=== PATIENT | female | born 1985 | race Caucasian/White ===

== ENCOUNTER 2020-02-16 15:03 | Outpatient (CLI) | payer OTHER, SELFPAY ==
--- NOTE | 2020-02-16 15:32 | ECG_ITS ---
Measurements Intervals [place] Rate: 75 P: 60 IA: 137 QRS: 51 QRSD: 85 T: 43 QT: 382 QTc: 427 Interpretive Statements SINUS RHYTHM INCOMPLETE RIGHT BUNDLE BRANCH BLOCK BASELINE WANDER- I, II, III, AVR, AVL BORDERLINE ECG Electronically Signed On 02-16-2020 18:19:39 CDT by Gonzalez Mora D.O.
== END 2020-02-16 15:04 | disposition home or self-care (01) ==
PROVIDERS: PCP Nurse Practitioner Family
DX: F90.0 Attention-deficit hyperactivity disorder, predominantly inattentive type (principal)
CPT/HCPCS: 93005

== ENCOUNTER 2021-01-25 08:49 | Outpatient (CLI) | payer OTHER, SELFPAY ==
--- NOTE | 2021-02-15 15:20 | WPDHOMESLEEP ---
Sleep Study - Home Unattended Date of Study: 01/25/21 Ordering Provider: Nadege Mack NP Interpreting Provider: Jo Mendez MD Home Sleep Study Type: Apnea Link Air Height: 1.7 m Weight: 73.936 kg Body Mass Index: 25.5 Neck Circumference (inches): 14.5 [place]: 8 Reason for Sleep Study Frequent loud snoring, excessive daytime sleepiness Sleep History Maegan Díaz is a 35 year old female who never feels rested, no matter how much sleep she gets. She frequently snores, occasionally loud enough that others complain. She cannot get out of the bed to start her day before noon. She uses Adderall for ADHD, and this helps mildly. She is a night owl, She does not have heartburn symptoms at night, does not have belching or coughing. She frequently falls asleep in the day, rarely involuntarily, never while driving. She rarely has loss of muscle tone with strong emotion. She frequently has daytime difficulties due to excessive sleepiness. She does not feel paralyzed on waking or falling asleep. She rarely has vivid dreamlike scenes on waking or falling asleep. She rarely has nightmares, rarely has raving thoughts. SHe rarely remembers her dreams. She frequently feels sad or depressed. She occasionally has anxiety. She rarely notices parts of her body jerking. She does not kick at night, does not have achy or crawly feelings in her legs, does not have leg pain at night, morning jaw pain, grinding teeth, stiff muscles in the morning, or pain at night. She has fatigue and concentration difficulties. Normal bedtime is 2:00 a.m., falling asleep quickly, waking multiple times at night due to Type I diabetes, and these awakenings last between 30 seconds to 1.5 minutes. These start soon after falling asleep, in the middle of the night and in the 1st pressman on web press hours. She checks her son's Dexcom which is a new activity. She previously had to heck a fingerstick glucose. She wakes at noon. On the weekends, she goes to bed at 3:00 am, wakes at 1 pm. She is always sleepy, frequently has memory and concentration difficulties and problems with daytime functioning due to excessive sleepiness. She had COVID in late November. She has gained 25 lb in the last year. [facility] Past Medical History Medical History Attention deficit disorder Depression with anxiety Dyslipidemia Essential (primary) hypertension History of COVID-19 11/2020 Vitamin D deficiency Family History Family History Father Family history of gastrointestinal disorder Other Asthma Hypertension Social History Social History Smoking status: Current every day smoker Alcohol intake: never Medications Home Medications Medication Instructions Recorded Confirmed Type desoximetasone 0.25 % topical cream g TOPICAL 08/08/19 10/25/20 History norgestimate 0.25 mg-ethinyl 1 tablet PO DAILY tablet 08/08/19 01/26/21 History estradiol 35 mcg tablet hydroxyzine HCl 25 mg tablet 25 mg PO TID PRN #30 tablet 09/15/19 01/26/21 Rx cholecalciferol (vitamin D3) 1,250 1,250 mcg PO WEEKLY #14 cap 11/19/20 01/26/21 Rx mcg (50,000 unit) capsule amlodipine 5 mg tablet 5 mg PO DAILY #90 tablet 01/26/21 01/26/21 Rx dextroamphetamine-amphetamine 5 mg 5 mg PO DAILY 01/26/21 01/26/21 History tablet dextroamphetamine-amphetamine ER 15 mg PO QAM 01/26/21 01/26/21 History 15 mg 24hr capsule,extend release fluoxetine 20 mg capsule 20 mg PO DAILY cap 01/26/21 01/26/21 History Sleep Procedure This test was performed using 4 channel monitoring including respiratory effort channel, snoring channel, heart rate channel, and oxygen saturation channel. This study was scored using CMS guidelines. Sleep Architecture Not applicable for home sleep test. Respiratory Analysis Recording time is 8 hours 22 minutes. Evaluation time is 8 ho
[2021-02-15 15:39] VITALS: BMI 25.5
== END 2021-01-26 11:10 | disposition home or self-care (01) ==
LOC: ANHCSM 08:53
PROVIDERS: PCP Nurse Practitioner Family; Visit Provider Nurse Practitioner Family
DX: G47.33 Obstructive sleep apnea (adult) (pediatric) (principal); G47.10 Hypersomnia, unspecified
CPT/HCPCS: 95806

== ENCOUNTER 2021-03-28 10:02 | Emergency (ER) | payer OTHER, SELFPAY ==
--- NOTE | 2021-03-28 10:07 | ED.SKABFB ---
HPI - Skin/Abscess/Foreign Bdy General Stated complaint: rash Time Seen by Provider: 03/28/21 10:07 Source: patient and RN notes reviewed History of Present Illness HPI narrative: Patient is a 36-year-old female who presents the urgent care with complaints of a flare in her eczema. Patient states that she has had for approximately six and half years and tends to manage it well with her steroid cream. Patient states she is out of her mupirocin ointment and would also like a refill. States that steroids in the past have helped. Reports of the flare for approximately 1 week. No other acute complaints. No acute distress noted. Patient aware of the plan of care. Some parts of this dictation were generated by voice recognition software and may contain typographical and/or grammatical inaccuracies. Related Data Home Medications Medication Instructions Recorded Confirmed desoximetasone 0.25 % topical cream 0.25 g TOPICAL DAILY 08/08/19 03/28/21 norgestimate 0.25 mg-ethinyl 1 tablet PO DAILY tablet 08/08/19 03/28/21 estradiol 35 mcg tablet dextroamphetamine-amphetamine 5 mg 5 mg PO DAILY 01/26/21 03/28/21 tablet dextroamphetamine-amphetamine ER 15 mg PO QAM 01/26/21 03/28/21 15 mg 24hr capsule,extend release fluoxetine 20 mg capsule 20 mg PO DAILY cap 01/26/21 03/28/21 Allergies Allergy/AdvReac Type Severity Reaction Status Date / Time azathioprine Allergy Unknown Nausea Verified 03/28/21 10:16 Review of Systems Review of Systems: CONSTITUTIONAL: Denies fever, chills, or sweats. EYES: Denies visual changes, redness, or discharge. ENT: Denies rhinorrhea, congestion, sore throat, or otalgia. CARDIOVASCULAR: Denies chest pain, palpitations, or edema. RESPIRATORY: Denies cough or dyspnea. GASTROINTESTINAL: Denies abdominal pain, nausea, vomiting, or diarrhea. GENITOURINARY: Denies dysuria or hematuria. SKIN: Reports of flare of eczema on bilateral hands and forearms MUSCULOSKELETAL: Denies back pain, joint pain, or myalgia. NEUROLOGIC: Denies headache, numbness, or weakness. All other systems reviewed are negative, except as documented in HPI. [facility] Past Medical History Medical History Attention deficit disorder Depression with anxiety Dyslipidemia Essential (primary) hypertension History of COVID-19 11/2020 Vitamin D deficiency Family History Family History Father Family history of gastrointestinal disorder Other Asthma Hypertension Social History Social History Smoking status: Current every day smoker Alcohol intake: never Comments At the time of my signature, I reviewed and agree with the nursing past medical, surgical, social, and family history. There is no relevant family history pertinent to the patient complaint. Exam Narrative: GENERAL: This is a well-nourished, well-developed patient, in no apparent distress. HEAD: normocephalic, atraumatic. EYES: PERRL. Sclera clear/white. Vision is grossly intact. EARS: External ears normal NOSE: External nose normal with no obvious nasal discharge, nares without redness, no rhinorrhea. THROAT: Mucous membranes moist NECK: Neck supple CARDIOVASCULAR: Regular rate and rhythm without murmurs, gallops, or rubs. RESPIRATORY: Clear to auscultation. Breath sounds equal bilaterally. No wheezes, rales, or rhonchi. SKIN: Severe dyshidrotic eczema noted to bilateral palms with blistering and severe cracking of the skin. Scattered papular dermatitis to bilateral forearms NEURO: awake, alert, and oriented to person, place and time. There were no obvious focal neurologic abnormalities. EXTREMITIES: No clubbing, cyanosis, or edema. Course Vital Signs Vital signs: Vital Signs Temperature 98.2 F 03/28/21 10:09 Pulse Rate 104 H 03/28/21 10:09 Respiratory Rate 18 03/28/21 10:09 Blood P
[2021-03-28 10:09] VITALS: BP 129/87; PULSE 104; RESP 18; TEMP 36.8; O2SAT 99
[2021-03-28] MEDS: predniSONE 20 MG TABLET 60 MG PO (10:27)
== END 2021-03-28 10:41 | disposition home or self-care (01) ==
PROVIDERS: Emergency Provider Nurse Practitioner Family; PCP Nurse Practitioner Family
DX: L30.1 Dyshidrosis [pompholyx] (principal); E78.5 Hyperlipidemia, unspecified; I10 Essential (primary) hypertension; Z86.16 Personal history of COVID-19; F41.8 Other specified anxiety disorders; F98.8 Other specified behavioral and emotional disorders with onset usually occurring in childhood and adolescence
CPT/HCPCS: 99213; G0463; J7512

== ENCOUNTER 2023-10-18 15:17 | Emergency (ER) | payer OTHER, SELFPAY ==
--- NOTE | ~2023-10-18 | CT_ITS ---
EXAMINATION: CT facial bones wo con DATE: 10/18/2023 16:02 INDICATION: Nose swelling. Face injury. TECHNIQUE: Computed tomography (CT) of the facial bones and maxillofacial region was performed withou t intravenous contrast. Automated exposure control and iterative reconstruction technique were employ ed. The dose-length product was 316.37 mGy-cm. COMPARISON: None. FINDINGS: There is mucosal thickening in the paranasal sinuses, worst in left maxillary sinus. The ma stoid air cells are normal. There is cerumen in left external auditory canal. The orbits are normal. There is nose soft tissue swelling. There is no fracture. There is anterior deviation of anterior lisa al septum and rightward deviation of posterior nasal septum. IMPRESSION: 1. No fracture. Reviewed, dictated and finalized at location E. IMPRESSION: 1. No fracture.
[2023-10-18 15:22] VITALS: BP 127/79; PULSE 98; RESP 18; TEMP 36.6; O2SAT 98
--- NOTE | 2023-10-18 15:30 | ED.FALL ---
HPI - Fall General Chief Complaint: Fall Stated Complaint: fall, facial injury Time Seen by Provider: 10/18/23 15:30 Focused HPI: This is a 38-year-old female who presents to the ED today for chief complaint of facial injury. She reports that she was intoxicated last night and fell around 3:00 a.m.. Reports that she fell down to the ground and hit her face and has nasal swelling. Today she just wants to get this checked out. Reports pain in this area but no other sites of pain or injury. Denies any LOC. Denies numbness, weakness, neck pain. GENERAL: Well-appearing, well-nourished, and in no acute distress. HEAD: Normocephalic, atraumatic. ENT: Moderate nasal swelling and mild ecchymosis. No septal hematoma. CHEST: Clear to auscultation. No respiratory distress. HEART: Regular rate and rhythm. NEURO: Alert and oriented x3. Patient screened in triage and initial orders placed. Additional care and disposition to be based upon diagnostic testing and treatment. Related Data Home Medications Medication Instructions Recorded Confirmed desoximetasone 0.25 % topical cream 0.25 g topical DAILY 08/08/19 09/03/23 dextroamphetamine-amphetamine 5 mg 5 mg PO DAILY 01/26/21 09/03/23 tablet (Adderall) dextroamphetamine-amphetamine ER 15 mg PO QAM 01/26/21 09/03/23 15 mg 24hr capsule,extend release (Adderall XR) lamotrigine 100 mg tablet 100 mg PO DAILY 12/16/21 09/03/23 (Lamictal) fluoxetine 40 mg capsule 40 mg PO DAILY 11/29/22 09/03/23 ruxolitinib 1.5 % topical cream applic topical BID 11/29/22 09/03/23 (Opzelura) Allergies Allergy/AdvReac Type Severity Reaction Status Date / Time azathioprine Allergy Unknown Nausea Verified 10/18/23 15:17 Review of Systems Review of Systems: All systems as dictated in [facility] Past Medical History Medical History Attention deficit disorder Depression with anxiety Dyslipidemia Eczema Encounter for surveillance of other contraceptives Essential (primary) hypertension History of COVID-19 11/2020 Vitamin D deficiency Surgical History Surgical History H/O gynecological procedure Nexplanon insertion 06/04/23 Family History Family History Father Family history of gastrointestinal disorder Mother Hypertension Other Asthma Social History Social History Smoking packs per day: 0.5 Smoking cigarettes per day: 10.0 Smoking status: Current every day smoker Tobacco type: cigarettes Alcohol intake: current Drinks per week: 8 Substance use: never Substance use type: does not use Lack of Transportation: No Lack of Food: Never True Current Housing: I Have Housing Concerned About Future Housing: No Difficulty Paying Gas/Electric Bills: YES Difficulty Paying for Meds: No Currently Unemployed: No Education: Bachelor's Degree Difficulty w/ Childcare or Family Care: No Living arrangements: other Additional living arrangements comments: single Occupation/Education: occupation Additional occupation/education comments: [employer] in [employer] Gender identity (if verbalized by the patient): Female Sexual Orientation (if Verbalized by the Patient): Bisexual Exam Narrative: GENERAL: Well-appearing, well-nourished, and in no acute distress. HEAD: Normocephalic, atraumatic. EYES: PERRLA and EOMI. ENT: Moderate swelling and bruising of the nasal bridge. No septal hematoma. Minimal periorbital swelling or tenderness. Nares clear, no rhinorrhea or epistaxis. Mucous membranes moist. Oropharynx without tonsillar hypertrophy exudate or other lesions. NECK: Supple. No adenopathy or masses. CHEST: No respiratory distress. Clear to auscultation. No wheezes rales or rhonchi HEART: Regular rate and rhythm. No murmur he
[2023-10-18] MEDS: TETANUS,DIPHTHERIA,AC PERTUSSIS ADULT (0.5 ML) BOOSTRIX IM (16:46)
== END 2023-10-18 16:50 | disposition home or self-care (01) ==
LOC: ANHED 16:27
PROVIDERS: Emergency Provider Physician Assistant; PCP Family Medicine
DX: S00.33XA Contusion of nose, initial encounter (principal); Z23 Encounter for immunization; I10 Essential (primary) hypertension; E55.9 Vitamin D deficiency, unspecified; F98.8 Other specified behavioral and emotional disorders with onset usually occurring in childhood and adolescence; F41.8 Other specified anxiety disorders; F17.210 Nicotine dependence, cigarettes, uncomplicated; Z86.16 Personal history of COVID-19; W10.9XXA Fall (on) (from) unspecified stairs and steps, initial encounter
CPT/HCPCS: 70486; 90471; 90715; 99284

== ENCOUNTER 2024-10-01 08:01 | Outpatient (CLI) | payer OTHER, SELFPAY ==
--- OUTSIDE RECORDS SUMMARY | 2024-08-06 15:17 | XMS_ITS | Referral Summary ---
Author Organization [facility] [employer] Address [address] [place] [address] Care Team Providers Care Meat Team Lead Name Role Phone Jose Nina MD Primary Care Provider [phone] Source Comments [facility] [employer],non-owned Affiliates and Associated Physician Practices is amultiple site organization consisting of ambulatory clinics and hospital sitesin [place], [place], [place] and [place]. This disclosure is being madepursuant to the Care Everywhere program and may not contain all information available regarding this patient. Last updated 18.[facility] [employer] Allergies Active Allergy Reactions Criticality Noted Date Comments Azathioprine Nausea and/or Vomiting 12/18/2018 Medications * Be aware that medications may not be up to date on this document. Alwaysverify current medications with the patient. Medication Sig Dispensed Refills Start Date End Date Status escitalopram (LEXAPRO) 10 MG tablet Take 1 (one) tablet by mouth DAILY 12/04/2016 Active hydrocortisone (HYTONE) 2.5 % ointment 20 g 2 12/04/2016 Active hydrOXYzine hcl (ATARAX) 25 MG tablet Take 25 mg by mouth 3X/day PRN (Itching). 12/04/2016 Active norethindrone (ORTHO MICRONOR; NOR-QD; EBER; GIOVANY; KAMARI-BE; DUKE; JOLIVETTE) 0.35 MG tablet Take 1 (one) tablet by mouth DAILY 04/17/2016 Active mupirocin (BACTROBAN) 2 % ointmentIndications :Dyshidrotic eczema,Other allergic contact dermatitis Apply to nostril rims and skin folds as directed BID x 5 days each month. 30DS 22 g 11 10/21/2018 Active betamethasone dipropionate (DIPROSONE) 0.05 % ointmentIndications :Allergic contact dermatitis due to other chemical products Apply to palms twice daily. 30 days supply. 45 g 2 12/18/2018 Active desoximetasone (TOPICORT) 0.25 % creamIndications:Al lergic contact dermatitis due to chemical,Dyshidrosi s Apply to hands, twice a day, 30 day supply 60 g 2 05/30/2019 Active triamcinolone acetonide (KENALOG) 0.1 % ointment Apply to affected area on arms, legs, and trunk twice a day as needed. 21 day supply 454 g 1 06/24/2019 Active mupirocin (Bactroban) 2 % ointment Apply to open sores twice daily as needed. 30 g 2 03/17/2024 Active dupilumab (Dupixent) 300 MG/2ML prefilled penIndications:Othe r eczema Inject 2 mL subcutaneously every 14 days 2 mL 11 04/01/2024 Active Ruxolitinib Phosphate (Opzelura) 1.5 % CREA 1 Application by Apply externally route 2 times daily To affected areas 60 g 5 04/01/2024 Active Active Problems Problem Noted Date Diagnosed Date Allergic contact dermatitis due to other chemica l products 05/28/2017 Dyshidrosis 04/17/2016 Social History Tobacco Use Types Packs/Day Years Used Date Smoking Tobacco: Some Days Cigarettes Smokeless Tobacco: Never Alcohol Use Standard Drinks/Week Comments Yes 0 (1 standard drink = 0.6 oz pur e alcohol) Sex and Gender Information Value Date Recorded Sex Assigned at Not on file Gender Identity Not on file Sexual Orientation Not on file Plan of Treatment Not on file Care Teams Meat Team Lead Relationship Specialty Start Date End Date Jose Nina MD [address] [place] [address] PCP - General 10/21/18
--- OUTSIDE RECORDS SUMMARY | 2024-08-06 15:17 | XMS_ITS | Encounter Summary ---
Author Organization [facility] Address [address] [place] [address] Care Team Providers Care Embedded Software Programmer Name Role Phone Jarret Verdugo MD Primary Care Provider [phone] Jose Nina MD Primary Care Provider [phone] Reason for Visit * Reason Onset Date Comments General 09/24/2018 Encounter Details Date Type Department Care Team (Late st Contact Info) Description 09/24/2018 Telephone [facility] [address] [place] [address] Narcisa Ryder MD [address] [facility] [address] [place] [address] General Social History Tobacco Use Types Packs/Day Years Used Date Smoking Tobacco: Former Cigarettes Q uit: 06/25/2013 Smokeless Tobacco: Never Alcohol Use Standard Drinks/Week Comments Yes 0 (1 standard drink = 0.6 oz pur e alcohol) Sex and Gender Information Value Date Recorded Sex Assigned at Not on file Gender Identity Not on file Sexual Orientation Not on file documented as of this encounter Miscellaneous Notes * Telephone Encounter - Emelia Ariadna - 10/09/2018 1:51 PM CDT On 09/25/[address] Ryder's request, I tried to reach Ms. Díaz to discuss additional options for her.She was not at home but at the dentist office, I left a message with the sitter to have her call meback and provider my name and office phone number. I have not received a phone call back as of today. * Telephone Encounter - Kaila Randhawa LPN - 09/24/2018 4:51 PM CDT Called patient back. Explained the physician response and patient began getting upset. She states that she has been doing all of these things and it's the same BS for years with no results; nothing is different. There's no correlation or consistency of the flare ups she is having. She states thatthe flare is extreme and is unable to use her hands. She has a 4 year old & 2 year old and it is impossible to use her hands with as bad as the flare up is at this time. She received a shot at one clinic visit and wondering if it can be called into the hospital near where she lives or an oral medication that can be ordered as she lives far from clinic. Kaila Randhawa LPN * Telephone Encounter - Narcisa Ryder MD - 09/24/2018 4:36 PM CDT Kaila, please call pt and have her start Topicort 0.25% cream BID, okay to give 120 g tube 2. Usewet wrap for 3-5 days. Start vinegar soak daily to bid. F/u with me in 1-2 mo. If worsens, okay to see Donna SANCHEZ first. * Telephone Encounter - Kacy Corbett - 09/24/2018 3:24 PM CDT Pt called and states she is having a very bad eczema flare up, dr. pal first available is not until 10/21/18 so pt is wanting to know is something can be prescribed for her until her appt. Or if dr ryder can squeeze her in to be seen sooner. Pt states she cannot use her hands they are so bad and is making taking care of her toddlers difficult. Please advise. documented in this encounter Plan of Treatment Not on file documented as of this encounter Visit Diagnoses Not on filedocumented in this encounter Care Teams Embedded Software Programmer Relationship Specialty Start Date End Date Jarret Verdugo MD [address] [facility] [address] [place] [address] PCP - General 04/17/16 10/20/18 Jose Nina MD [address] [place] [address] PCP - General 10/21/18 documented as of this encounter
--- OUTSIDE RECORDS SUMMARY | 2024-08-06 15:17 | XMS_ITS | Clinical Summary ---
Author Organization [address] Address [address] [place] [id number] Care Team Providers Care Animal Taxonomist Name Role Phone Unknown, Notinfile Primary Care Provider Unavail able Allergies Active Allergy Reactions Criticality Noted Date Comments Azathioprine Nausea And Vomiting 12/18/2018 Medications betamethasone dipropionate (DIPROSONE) 0.05 % ointment Apply to palms twice daily. 30 days supply. 9 Active desoximetasone (TOPICORT) 0.25 % cream Apply to hands, twice a day, 30 day supply 9 Active dextroamphetamine -amphetamine (ADDERALL) 15 mg tablet 0 4 Active dextroamphetamine -amphetamine XR (ADDERALL XR) 20 mg 24 hr capsule 0 4 Active escitalopram (LEXAPRO) 10 mg tablet Take 1 tablet (10 mg total) by mouth daily 7 Active hydrocortisone 2.5 % ointment 7 Active hydrOXYzine (ATARAX) 25 mg tablet Take 1 tablet (25 mg total) by mouth 3 (three) times a day as needed 7 Active mupirocin (BACTROBAN) 2 % ointment Apply to nostril rims and skin folds as directed BID x 5 days each month. 30DS 9 Active norethindrone (MICRONOR) 0.35 mg tablet Take 1 tablet (0.35 mg total) by mouth daily 6 Active triamcinolone (KENALOG) 0.1 % ointment Apply to affected area on arms, legs, and trunk twice a day as needed. 21 day supply 9 Active FLUoxetine (PROzac) 20 mg capsule Take 2 capsules (40 mg total) by mouth daily Active metoprolol elliott-hydrochlorothi az 25-12.5 mg tablet extended release 24 hr Take by mouth daily Active lamoTRIgine 25 mg (84) -100 mg (14) tablets,dose pack Take by mouth Active Active Problems Problem Noted Date Diagnosed Date Allergic contact dermatitis due to other chemica l products 05/28/2017 Dyshidrosis 04/17/2016 Encounters Date Type Department Care Team Description 05/10/2024 3:45 PM [employer] Office Visit [facility] [address] [address] Lucie Tinsley NP Acute maxillary sinusitis, recurrence not specified (Primary Dx); Acute lower respiratory infection; Wheezing from Last 3 Months Social History Tobacco Use Types Packs/Day Years Used Date Smoking Tobacco: Never Assessed Comments Unknown Sex and Gender Information Value Date Recorded Sex Assigned at Not on file Legal Sex Female 8:35 PM [employer] Gender Identity Not on file Sexual Orientation Not on file Obstetrics History Last Filed Vital Signs Vital Sign Reading Time Taken Comments Blood Pressure 132/90 05/10/2024 4:04 PM [employer] Pulse 94 05/10/2024 3:53 PM [employer] Temperature 36.9 C (98.5 F) 05/10/2024 3:53 PM [employer] Respiratory Rate 20 05/10/2024 3:53 PM [employer] Oxygen Saturation 98% 05/10/2024 3:53 PM [employer] Inhaled Oxygen Concentration - - Weight 64 kg (141 lb) 05/10/2024 3:53 PM [employer] Height 170.2 cm (5' 7 ) 05/10/2024 3:53 PM [employer] Body Mass Index 22.08 05/10/2024 3:53 PM [employer] Plan of Treatment Health Maintenance Due Date Last Done Comments Cervical Cancer Screening 1987 Depression Screening 1987 Hepatitis C Screening 1987 Varicella Vaccines (1 of 2 - 13+ 2-dose series) 2000 Regular Well Visit/Exam 18-64 2005 Covid-19 Vaccine ( season) 2024 04/30/2023, 06/05/2022, 05/12/2021, Additional history exists Influenza Vaccine (#1) 2024 3, 05/08/2022, 05/12/2021, Additional history exists DTaP/Tdap/Td Vaccine (2 - Td or Tdap) 06/05/2024 06/05/2014 Hepatitis B Screening Completed 11/10/1997 , 06/08/1997, 05/04/1997 HPV Vaccines Aged Out No longer eligi ble based on patient's age to complete this topic Pneumococcal vaccine <65 Aged Out No longer eligible based on patient's age to complete this topic Insurance [facility] Care Teams Animal Taxonomist Relationship Specialty Start Date End Date Unknown, Notinfile PCP - General 09/10/23
--- OUTSIDE RECORDS SUMMARY | 2024-08-06 15:17 | XMS_ITS | Clinical Summary ---
Author Organization [facility] Address [address] [place] [address] Care Team Providers Care Tax Assessor Name Role Phone Unavailable Primary Care Provider Unavailabl e Social History Tobacco Use Types Packs/Day Years Used Date Smoking Tobacco: Never Assessed Comments Unknown Sex and Gender Information Value Date Recorded Sex Assigned at Not on file Legal Sex Female 7:56 AM CDT Gender Identity Not on file Sexual Orientation Not on file Last Filed Vital Signs Vital Sign Reading Time Taken Comments Blood Pressure 118/60 03/26/2015 2:19 PM CDT Pulse 78 03/26/2015 2:19 PM CDT Temperature - - Respiratory Rate - - Oxygen Saturation - - Inhaled Oxygen Concentration - - Weight 60.3 kg (133 lb) 03/26/2015 2:19 PM CDT Height 170.2 cm (5' 7 ) 09/16/2012 9:30 AM CDT Body Mass Index 20.83 09/16/2012 9:30 AM CDT Plan of Treatment Health Maintenance Due Date Last Done Comments Cervical Cancer Screening Pa p Smear (Age 30 to 64) Every 3 Years 1987 Annual Physical 1990 Hepatitis C 2005 DTaP, Tdap and Td Vaccines ( 1 - Tdap) 2006 Hepatitis B Vaccines (1 of 3 - 19+ 3-dose series) 2006 Cervical Cancer Screening Pa p with HPV Testing (Age 30 to 64) Every 5 Years 2017 Cervical Cancer Screening with HPV 2017 COVID-19 Vaccine (2023-2 5 season) 2024 Influenza Adult (#1) 2024 HPV Vaccines Aged Out No longer eligi ble based on patient's age to complete this topic Meningococcal B Vaccine Aged Out No l onger eligible based on patient's age to complete this topic Meningococcal Vaccine Aged Out No joss kiley eligible based on patient's age to complete this topic Pneumococcal Vaccine: Pediat rics (0 to 5 Years) and At-Risk Patients (6 to 64 Years) Aged Out No longer eligible b ased on patient's age to complete this topic RSV Immunizations Under 20 Months Aged Out No longer eligible based on patient's age to complete this topic
--- OUTSIDE RECORDS SUMMARY | 2024-08-06 15:17 | XMS_ITS | Encounter Summary ---
Author Organization [facility] Address [address] [place] [address] Care Team Providers Care Reimbursement Representative Name Role Phone Jose Nina MD Primary Care Provider [phone]- [phone] Reason for Visit * Reason Onset Date Comments Medication Problem 11/22/2018 Encounter Details Date Type Department Care Team (Late st Contact Info) Description 11/22/2018 Telephone [facility] [address] [place] [address] Narcisa Ryder MD [address] [facility] [address] [place] [address] Medication Problem Social History Tobacco Use Types Packs/Day Years Used Date Smoking Tobacco: Some Days Cigarettes Last attempted to quit: 06/25/2013 Smokeless Tobacco: Never Alcohol Use Standard Drinks/Week Comments Yes 0 (1 standard drink = 0.6 oz pur e alcohol) Sex and Gender Information Value Date Recorded Sex Assigned at Not on file Gender Identity Not on file Sexual Orientation Not on file documented as of this encounter Miscellaneous Notes * Telephone Encounter - Estuardo Polanco MD - 11/25/2018 1:31 PM CDT Spoke w/ pt. She stopped Imuran 11/22/18 2/2 s/e, including: shingles 3 days after starting the medication and N/V/D 1 week after starting. Her shingles is improving with antiviral tx and her N/V/D isimproving since stopping the medication. She did not think that the medication helped much for her skin in the short duration she was on it. I advised she needs to be evaluated in clinic again to discuss alternative treatments. In the meantime, continue topical treatment as previously directed. Pt agreed with plan. Estuardo Polanco M.D. PGY-3 dermatology resident * Telephone Encounter - Gilles Mullen - 11/25/2018 1:20 PM CDT Pt calling back to ask what doctor advises. Pt discontinued medication last Sun11/22/18. Kim Mullen Senior Patient Weaver [facility] Department of Dermatology, Mohs Surgery and Cutaneous Oncology [facility] Dermatology [facility] * Telephone Encounter - Filemon Etienne MD - 11/25/2018 12:53 PM CDT Estuardo, Please call pt and discuss. No taper needed, but would see if it truly sounds like there are actual side effects from the med. Thank you * Telephone Encounter - Kacy Corbett - 11/22/2018 1:14 PM CDT azaTHIOprine (IMURAN) 50 MG tablet Pt called and states that she does not want to take this medication anymore due to the side affects, Pt would like to know how to discontinue this or if she should just stop taking it. Please advise. documented in this encounter Plan of Treatment Not on file documented as of this encounter Visit Diagnoses Not on filedocumented in this encounter Care Teams Reimbursement Representative Relationship Specialty Start Date End Date Jose Nina MD [address] [place] [address] PCP - General 10/21/18 documented as of this encounter
--- OUTSIDE RECORDS SUMMARY | 2024-08-06 15:17 | XMS_ITS | Patient Health Summary ---
Author Organization [facility] Address [address] [facility] [place] [address] Care Team Providers Care Sandwich Machine Operator Name Role Phone Jose Nina MD Primary Care Provider Note from [facility],non-owned Affiliates and Associated Physician Practices is amultiple site organization consisting of ambulatory clinics and hospital sitesin [place], [place], [place] and [place]. This disclosure is being madepursuant to the Care Everywhere program and may not contain all information available regarding this patient. Last updated 18.[facility] [employer] Allergies * Azathioprine(Nausea and/or Vomiting) Medications * Be aware that medications may not be up to date on this document. Alwaysverify current medications with the patient. * escitalopram (LEXAPRO) 10 MG tablet(Started 12/04/2016) Take 1 (one) tablet by mouth DAILY * hydrocortisone (HYTONE) 2.5 % ointment(Started 12/04/2016) 2 refills left * hydrOXYzine hcl (ATARAX) 25 MG tablet(Started 12/04/2016) Take 25 mg by mouth 3X/day PRN (Itching). * norethindrone (ORTHO MICRONOR; NOR-QD; EBER; GIOVANY; KAMARI-BE; DUKE; JOLIVETTE) 0.35 MG tablet(Started 04/17/2016) Take 1 (one) tablet by mouth DAILY * mupirocin (BACTROBAN) 2 % ointment(Started 10/21/2018) Apply to nostril rims and skin folds as directed BID x 5 days each month. 30DS 11 refills remaining * betamethasone dipropionate (DIPROSONE) 0.05 % ointment(Started 12/18/2018) Apply to palms twice daily. 30 days supply. 2 refills remaining * desoximetasone (TOPICORT) 0.25 % cream(Started 05/30/2019) Apply to hands, twice a day, 30 day supply 2 refills by 05/29/2020 * triamcinolone acetonide (KENALOG) 0.1 % ointment(Started 06/24/2019) Apply to affected area on arms, legs, and trunk twice a day as needed. 21 day supply 1 refill by 06/23/2020 * mupirocin (Bactroban) 2 % ointment(Started 03/17/2024) Apply to open sores twice daily as needed. 2 refills by 03/17/2025 * dupilumab (Dupixent) 300 MG/2ML prefilled pen(Started 04/01/2024) Inject 2 mL subcutaneously every 14 days 11 refills by 04/01/2025 * Ruxolitinib Phosphate (Opzelura) 1.5 % CREA(Started 04/01/2024) 1 Application by Apply externally route 2 times daily To affected areas 5 refills by 04/01/2025 Active Problems Problem Noted Date Diagnosed Date [...] on file Sexual Orientation Not on file Procedures * COMPREHENSIVE METABOLIC PANEL(Performed 11/22/2018) Performed for Encounter for long-term current use of high risk medication * CBC W AUTO DIFFERENTIAL(Performed 11/22/2018) Performed for Encounter for long-term current use of high risk medication * HEPATIC FUNCTION PANEL(Performed 11/14/2018) Performed for Encounter for long-term current use of high risk medication * CBC W AUTO DIFFERENTIAL(Performed 11/14/2018) Performed for Encounter for long-term current use of high risk medication * QUANTIFERON-TB GOLD PLUS 1-TUBE(Performed 10/28/2018) * COMPREHENSIVE METABOLIC PANEL(Performed 10/28/2018) Performed for Encounter for long-term current use of high risk medication * CBC W AUTO DIFFERENTIAL(Performed 10/28/2018) Performed for Encounter for long-term current use of high risk medication * THIOPURINE METHYLTRANSFERASE(Performed 10/28/2018) Performed for Encounter for long-term current use of high risk medication * CULTURE FUNGUS OTHER+FUNGUS SMEAR(Performed 10/21/2018) Performed for Rash and other nonspecific skin eruption * CULTURE AEROBIC(Performed 10/21/2018) Performed for Rash and other nonspecific skin eruption * CULTURE AEROBIC(Performed 01/22/2017) * FUNGUS SINA - POINT OF CARE (AMB) [facility](Performed 12/04/2016) * CULTURE AEROBIC(Performed 12/04/2016) * FUNGUS SINA - POINT OF CARE (AMB) [facility](Performed 04/17/2016) * CULTURE FUNGUS SKIN HAIR NAILS(Performed 04/17/2016) * CULTURE AEROBIC(Performed 04/17/2016) Results * (ABNORMAL) CBC W AUTO DIFFERENTIAL (11/22/2018 3:12 PM CDT) Only the most recent of3 resultswithin the time period is included. White Blood Cell Count 5.0 3.8 - 10.8 Thousand/u L [facility] RBC 3.74(L) 3.80 - 5.10 Million/uL [facility] Hemoglobin 12.0 11.7 - 15.5 g/dL [facility] Hematocrit 36.1 35.0 - 45.0 % [facility] MCV 96.5 80.0 - 100.0 fL [facility] MCH 32.1 27.0 - 33.0 pg [facility] MCHC 33.2 32.0 - 36.0 g/dL [facility] RDW 12.6 11.0 - 15.0 % [facility] Platelet Count 353 140 - 400 Thousand/u L [facility] MPV 9.5 7.5 - 12.5 fL [facility] Neutrophil Absolute 3470 1500 - 7800 cells/uL [facility] Lymphocytes Absolute 950 850 - 3900 cells/uL [facility] Absolute Monocytes 360 200 - 950 cells/uL [facility] Eosinophils Absolute 210 15 - 500 cells/uL [facility] Basophils Absolute 10 0 - 200 cells/uL [facility] Granulocytes % 69.4 % [facility] Lymphocytes % 19.0 % [facility] Monocytes % 7.2 % [facility] Eosinophils % 4.2 % [facility] Basophils % 0.2 % [facility] Comment: REPORT COMMENT: PT VARIFIED THIS IS THE CORRECT ORDER FASTING:NO Test Performed at: [facility] [address] [place] [address] ARTEMIO VASQUEZ DO,MPH Blood BLOOD SPECIMEN / Unknown 11/22/2018 3:12 PM CDT 11/22/2018 3:12 PM CDT Narcisa Ryder MD LAB - HEMATOLOGY ORD ERABLES [facility] [address] [place] [address] * (ABNORMAL) COMPREHENSIVE METABOLIC PANEL (11/22/2018 3:12 PM CDT) Only the most recent of2 resultswithin the time period is included. Glucose 95 65 - 139 mg/dL [facility] Comment: Non-fasting reference interval BUN 9 7 - 25 mg/dL [facility] Creatinine 0.64 0.50 - 1.10 mg/dL [facility] eGFR by MDRD 119 > OR = 60 mL/min/1. 73m2 [facility] eGFR by MDRD 138 > OR = 60 mL/min/1. 73m2 [facility] BUN/Creatinine Ratio NOT APPLICABLE 6 - 22 (calc) [facility] Sodium 140 135 - 146 mmol/L [facility] Potassium 4.0 3.5 - 5.3 mmol/L [facility] Chloride 105 98 - 110 mmol/L [facility] CO2 27 20 - 32 mmol/L [facility] Calcium 9.2 8.6 - 10.2 mg/dL [facility] Protein Total 6.9 6.1 - 8.1 g/dL [facility] Albumin 4.3 3.6 - 5.1 g/dL [facility] Globulin Total 2.6 1.9 - 3.7 g/dL (calc) [facility] Albumin/Globuli n Ratio 1.7 1.0 - 2.5 (calc) [facility] Bilirubin Total 0.4 0.2 - 1.2 mg/dL [facility] Alkaline Phosphatase 260(H) 33 - 115 U/L [facility] AST 82(H) 10 - 30 U/L [facility] ALT 131(H) 6 - 29 U/L [facility] Comment: Test Performed at: [facility] [address] [facility] [place] [address] ARTEMIO VASQUEZ DO,MPH Blood BLOOD SPECIMEN / Unknown 11/22/2018 3:12 PM CDT 11/22/2018 3:12 PM CDT Narcisa Ryder MD LAB - CHEMISTRY ANDREA LINARES Performing Organization Address [facility][1] de Phone Number [facility] [address] [place] [address] * HEPATIC FUNCTION PANEL (11/14/2018 3:05 PM CDT) Pathologist [facility] Protein Total 7.0 6.1 - 8.1 g/dL [facility] Albumin 4.4 3.6 - 5.1 g/dL [facility] Globulin Total 2.6 1.9 - 3.7 g/dL (calc) [facility] Albumin/Globulin Ratio 1.7 1.0 - 2.5 (calc) [facility] Bilirubin Total 0.3 0.2 - 1.2 mg/dL [facility] Bilirubin Direct 0.1 < OR = 0.2 mg/dL [facility] Bilirubin Indirect 0.2 0.2 - 1.2 mg/dL (calc) [facility] Alkaline Phosphatase 69 33 - 115 U/L [facility] AST 15 10 - 30 U/L [facility] ALT 13 6 - 29 U/L [facility] Comment: Test Performed at: [facility] [address] [place] [address] ARTEMIO VASQUEZ DO,MPH Blood BLOOD SPECIMEN / Unknown 11/14/2018 3:05 PM CDT 11/14/2018 3:05 PM CDT Narcisa Ryder MD LAB - CHEMISTRY ANDREA LINARES Performing Organization Address [facility] de Phone Number [facility] [address] [place] [address] * QUANTIFERON-TB GOLD PLUS 1-TUBE (10/28/2018 2:29 PM CDT) [facility] QuantiFERON TB Gold Plus NEGATIVE NEGATIVE [facility] Comment: Negative test result. M. tuberculosis complex infection unlikely. NIL 0.01 IU/mL [facility] MITOGEN MINUS NIL RESULT 6.99 IU/mL [facility] TB1-NIL 0.00 IU/mL [facility] TB2-NIL 0.01 IU/mL [facility] Comment: The Nil tube value reflects the background interferon gamma immune response of the patient's blood sample. This value has been subtracted from the patient's displayed TB and Mitogen results. Lower than expected results with the Mitogen tube prevent false-negative Quantiferon readings by detecting a patient with a potential immune suppressive condition and/or suboptimal pre-analytical specimen handling. The TB1 Antigen tube is coated with the M. tuberculosis-specific antigens designed to elicit responses from TB antigen primed CD4+ helper T-lymphocytes. The TB2 Antigen tube is coated with the M. tuberculosis-specific antigens designed to elicit responses from TB antigen primed CD4+ helper and CD8+ cytotoxic T-lymphocytes. For additional information, please refer to http://education.Cernium/faq/204 (This link is being provided for informational/ educational purposes only.) REPORT COMMENT: FASTING:NO SPECIALIZED COLLECTION. PATIENT REFERRED TO ALTERNATE SITE. Test Performed at: [facility] [address] [place] [address] ARTEMIO VASQUEZ DO,MPH 10/28/2018 2:29 PM CDT 10/28/2018 2:31 PM CDT Narcisa Ryder MD LAB - CHEMISTRY ANDREA LINARES Performing Organization Address [facility] Co de Phone Number [place] [phone] [place] [address] * TPMT-THIOPURINE METHYLTRANSFERASE (10/28/2018 2:29 PM CDT) [facility] TPMT Activity 16 nmol/hr/mL RBC [facility] Comment: Reference Range for TPMT Activity: >12 Normal 4-12 Heterozygote or low metabolizer <4 Homozygote Deficient Range This test was developed and its analytical performance characteristics have been determined by [facility]. It has not been cleared or approved by FDA. This assay has been validated pursuant to the CLIA regulations and is used for clinical purposes. Test Performed at: [facility] [employer] [facility] [address] [place] [address] SULLY CARRASCO MD,PHD,TIFFANY Blood BLOOD SPECIMEN / Unknown 10/28/2018 2:29 PM CDT 10/28/2018 2:31 PM CDT Narcisa Ryder MD LAB - CHEMISTRY ANDREA LINARES Performing Organization Address [facility] [place] [address] * CULTURE FUNGUS OTHER+FUNGUS SMEAR (10/21/2018 3:14 PM CDT) Smear [facility] Comment: CULTURE, FUNGUS W/SMEAR NOT HAIR, SKIN, BLOOD MICRO NUMBER: [id number] TEST STATUS: FINAL SPECIMEN SOURCE: PALM SPECIMEN QUALITY: ADEQUATE SMEAR: No fungal elements seen. RESULT: No fungal growth at 4 Weeks Test Performed at: [facility] [employer] [address] ALEXANDRO BECKER MD Microbiology SPECIMEN FROM SKIN OBTAINED BY SCRAPING / Unknown 10/21/2018 3:14 PM CDT 10/22/2018 3:31 AM CDT Narcisa Ryder MD LAB - MICROBIOLOGY O MAREK Performing Organization Address [facility] [place] [address] * CULTURE AEROBIC (10/21/2018 3:14 PM CDT) Only the most recent of4 resultswithin the time period is included. Culture [facility] Comment: CULTURE, AEROBIC BACTERIA MICRO NUMBER: [id number] TEST STATUS: FINAL SPECIMEN SOURCE: SKIN SPECIMEN QUALITY: ADEQUATE RESULT: Growth of skin tonya (note: Growth does not include S. aureus, beta-hemolytic Streptococci or P. aeruginosa). Test Performed at: [facility] [employer] [address] ALEXANDRO BECKER MD Microbiology TISSUE SPECIMEN FROM SKIN / Unknown 10/21/2018 3:14 PM CDT 10/22/2018 3:31 AM CDT Narcisa Ryder MD LAB - MICROBIOLOGY O MAREK Performing Organization Address [facility] [place] [address] * (ABNORMAL) FUNGUS SINA - POINT OF CARE (AMB) [facility] (12/04/2016) Only the most recent of2 resultswithin the time period is included. SINA Prep (A) [facility] Comment:Positive for single hyphae Skin (tissue) specimen (specimen) 12/04/2016 Narcisa Ryder MD LAB - POINT OF CARE ORDERABLES Performing Organization Address [facility] Co de Phone Number [facility] * CULTURE FUNGUS SKIN HAIR NAILS (04/17/2016) Culture Fungus SEE NOTE [facility] ([facility]) Comment: CULTURE, FUNGUS, SKIN, HAIR OR NAILS MICRO NUMBER: [id number] TEST STATUS: FINAL SPECIMEN SOURCE: SKIN SPECIMEN QUALITY: ADEQUATE RESULT: No fungal growth at 4 Weeks REPORT COMMENT: SPECIMEN TYPE->SKIN SPECIMEN TYPE->SKIN Test Performed at: [employer] [facility] [employer] [address] ALEXANDRO BECKER MD Skin (tissue) specimen (specimen) 04/17/2016 04/17/2016 9:14 PM CDT Narrative [facility] ([facility]) - 05/16/2016 12:00 PM DUST BOX TENDER Specimen Type->Skin Narcisa Rdyer MD LAB - MICROBIOLOGY O RDERABLES [facility] ([facility]) Care Teams Sandwich Machine Operator Relationship Specialty Start Date End Date Jose Nina MD [address] [place] [address] PCP - General 10/21/18
--- OUTSIDE RECORDS SUMMARY | 2024-08-06 15:17 | XMS_ITS | Clinical Summary ---
Author Organization [facility] [email or web address] Address [address] [place] [address] Care Team Providers Care Concrete Inspector Name Role Phone Jose Nina MD Primary Care Provider [phone]- [phone] Source Comments [facility] [employer],non-owned Affiliates and Associated Physician Practices is amultiple site organization consisting of ambulatory clinics and hospital sitesin [place], [place], [place] and [place]. This disclosure is being madepursuant to the Care Everywhere program and may not contain all information available regarding this patient. Last updated 18.[facility] [email or web address] Allergies Active Allergy Reactions Criticality Noted Date [...] other chemica l products 05/28/2017 Dyshidrosis 04/17/2016 Family History Medical History Relation Name Comments Eczema Father Allergy (Severe) Neg Hx Asthma Neg Hx CVA Neg Hx Cancer Neg Hx Cancer - Breast Neg Hx Cancer - Other Neg Hx Cancer - Skin, Melanoma Neg Hx Cancer - Skin, Non Melanoma Neg Hx Hemophilia Neg Hx Psoriasis Neg Hx Rashes/Skin Problems Neg Hx Relation Name Status Comments Father Social History Tobacco Use Types Packs/Day Years Used Date Smoking Tobacco: Some Days Cigarettes Smokeless Tobacco: Never Alcohol Use Standard Drinks/Week Comments Yes 0 (1 standard drink = 0.6 oz pur e alcohol) Sex and Gender Information Value Date Recorded Sex Assigned at Not on file Gender Identity Not on file Sexual Orientation Not on file Plan of Treatment Health Maintenance Due Date Last Done Comments PAP SMEAR 1987 HIV SCREENING 2002 HEPATITIS C SCREENING 03/03/2005 DTAP/TDAP/TD VACCINES (1 - Tdap) 2006 HEPATITIS B VACCINE (1 of 3 - 19+ 3-dose series) 2006 PNEUMOCOCCAL VACCINE (1 of 2 - PCV) 2006 COVID-19 VACCINE (1 - 2023-2 5 season) 2024 INFLUENZA VACCINE (#1) 2024 DEPRESSION SCREENING 06/25/2024 ZOSTER VACCINE (1 of 2) 2037 HIB VACCINE Aged Out No longer eligi ble based on patient's age to complete this topic HPV VACCINE Aged Out No longer eligi ble based on patient's age to complete this topic MENINGOCOCCAL (Group B) VACCINE Aged Out No longer eligible based on patient's age to complete this topic MENINGOCOCCAL VACCINE Aged Out No joss kiley eligible based on patient's age to complete this topic Care Teams Concrete Inspector Relationship Specialty Start Date End Date Jose Nina MD [address] [place] [address] PCP - General 10/21/18
--- OUTSIDE RECORDS SUMMARY | 2024-08-06 15:17 | XMS_ITS | Referral Summary ---
Author Organization [address] [address] Care Team Providers Care Healthcare Recruiter Name Role Phone Unknown, Notinfile Primary Care Provider Unavail able Encounters Date Type Department Care Team Description 05/10/2024 3:45 PM ASSEMBLER KNIFE Office Visit [facility] at [address] [address] Lucie Tinsley NP Acute maxillary sinusitis, recurrence not specified (Primary Dx); Acute lower respiratory infection; Wheezing from Last 3 Months Allergies Active Allergy Reactions Criticality Noted Date [...] on file Legal Sex Female 8:35 PM ASSEMBLER KNIFE Gender Identity Not on file Sexual Orientation Not on file Last Filed Vital Signs Vital Sign Reading Time Taken Comments Blood Pressure 132/90 05/10/2024 4:04 PM ASSEMBLER KNIFE Pulse 94 05/10/2024 3:53 PM ASSEMBLER KNIFE Temperature 36.9 C (98.5 F) 05/10/2024 3:53 PM ASSEMBLER KNIFE Respiratory Rate 20 05/10/2024 3:53 PM ASSEMBLER KNIFE Oxygen Saturation 98% 05/10/2024 3:53 PM ASSEMBLER KNIFE Inhaled Oxygen Concentration - - Weight 64 kg (141 lb) 05/10/2024 3:53 PM ASSEMBLER KNIFE Height 170.2 cm (5' 7 ) 05/10/2024 3:53 PM ASSEMBLER KNIFE Body Mass Index 22.08 05/10/2024 3:53 PM ASSEMBLER KNIFE Plan of Treatment Not on file Insurance [facility] Care Teams Healthcare Recruiter Relationship Specialty Start Date End Date Unknown, Notinfile PCP - General 09/10/23
--- OUTSIDE RECORDS SUMMARY | 2024-10-01 08:09 | XMS_ITS | Clinical Summary ---
Author Organization [facility] [employer] Address [address] [facility] [place] [address] Care Team Providers Care Lockstitch Back Maker Name Role Phone Jose Nina MD Primary Care Provider [phone]- [phone] Source Comments [facility] [employer],non-owned Affiliates and Associated Physician Practices is amultiple site organization consisting of ambulatory clinics and hospital sitesin [place], [place], [place] and [place]. This disclosure is being madepursuant to the Care Everywhere program and may not contain all information available regarding this patient. Last updated 18.[facility] [employer] Allergies Active Allergy Reactions Criticality Noted Date [...] as needed. 30 g 2 03/17/2024 Active Ruxolitinib Phosphate (Opzelura) 1.5 % CREA 1 Application by Apply externally route 2 times daily To affected areas 60 g 5 04/01/2024 Active dupilumab (Dupixent) 300 MG/2ML prefilled penIndications:Othe r eczema Inject 2 mL subcutaneously every 14 days for 90 days 4 mL 2 08/12/2024 11/10/2024 Active Active Problems Problem Noted Date Diagnosed Date Allergic contact dermatitis due to other chemica l products 05/28/2017 Dyshidrosis 04/17/2016 Encounters Date Type Department Care Team Description 08/12/2024 Travel 08/12/2024 Telephone [facility] - Dermatology [address] [facility] [place] [id number] Snehal Higuera MD Medication Issue from Last 3 Months Family History Medical History Relation Name Comments [...] VACCINE (1 - 2023-2 5 season) 2024 DEPRESSION SCREENING 06/25/2024 INFLUENZA VACCINE (Season Ended) 2025 ZOSTER VACCINE (1 of 2) 2037 HIB VACCINE Aged Out No longer eligi ble based on patient's age to complete this topic HPV VACCINE Aged Out No longer eligi ble based on patient's age to complete this topic MENINGOCOCCAL (Group B) VACC INE SHARED DECISION-MAKING Aged Out No longer eligibl e based on patient's age to complete this topic MENINGOCOCCAL GROUPS A/C/Y/W VACCINE Aged Out No longer eligible b ased on patient's age to complete this topic Care Teams Lockstitch Back Maker Relationship Specialty Start Date End Date Jose Nina MD [address] [place] [address] PCP - General 10/21/18
--- OUTSIDE RECORDS SUMMARY | 2024-10-01 08:09 | XMS_ITS | Encounter Summary ---
Author Organization [facility] Health Address [address] [facility] [place] [address] Care Team Providers Care Turnaround Engineer Name Role Phone Jarret Verdugo MD Primary Care Provider [phone] Jose Nina MD Primary Care Provider [phone] Reason for Visit * Reason Onset Date Comments General 09/24/2018 Encounter Details Date Type Department Care Team (Late st Contact Info) Description 09/24/2018 Telephone [facility] [address] [place] [address] Narcisa Ryder MD [address] [facility] [address] [place] [address] General Social History Tobacco Use Types Packs/Day [...] on filedocumented in this encounter Care Teams Turnaround Engineer Relationship Specialty Start Date End Date Jarret Verdugo MD [address] [facility] [address] [place] [address] PCP - General 04/17/16 10/20/18 Jose Nina MD [address] [place] [address] PCP - General 10/21/18 documented as of this encounter
--- OUTSIDE RECORDS SUMMARY | 2024-10-01 08:09 | XMS_ITS | Encounter Summary ---
Author Organization [facility] Address [address] [place] [address] Care Team Providers Care Disintegrator Operator Name Role Phone Jose Nina MD Primary Care Provider [phone] Reason for Visit * Reason Onset Date Comments Medication Problem 11/22/2018 Encounter Details Date Type Department Care Team (Late st Contact Info) Description 11/22/2018 Telephone [facility] [address] [place] [address] Narcisa Ryder MD [address] [facility] [address] [place] [address] Medication Problem Social History Tobacco Use Types [...] medication last Sun11/22/18. Kim Mullen Senior Patient Lawyer Real Estate Department of Dermatology, Mohs Surgery and Cutaneous Oncology [facility] Dermatology [facility] * Telephone Encounter - Filemon Etienne MD [...] on filedocumented in this encounter Care Teams Disintegrator Operator Relationship Specialty Start Date End Date Jose Nina MD [address] [place] [address] PCP - General 10/21/18 documented as of this encounter
--- OUTSIDE RECORDS SUMMARY | 2024-10-01 08:09 | XMS_ITS | Clinical Summary ---
Author Organization [facility] Address [address] [place] [id number] Care Team Providers Care Retail Sales Specialist Name Role Phone Unavailable Primary Care Provider [...] 2017 COVID-19 Vaccine (2023-2 5 season) 2024 HPV Vaccines Aged Out No longer [...]
--- OUTSIDE RECORDS SUMMARY | 2024-10-01 08:09 | XMS_ITS | Clinical Summary ---
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 Gender Identity Not on file Sexual Orientation Not on file Obstetrics History Last Filed Vital Signs Vital Sign Reading Time Taken Comments Blood Pressure 132/90 05/10/2024 4:04 PM LOAN DOCUMENTS CLOSER Pulse 94 05/10/2024 3:53 PM LOAN DOCUMENTS CLOSER Temperature 36.9 C (98.5 F) 05/10/2024 3:53 PM LOAN DOCUMENTS CLOSER Respiratory Rate 20 05/10/2024 3:53 PM LOAN DOCUMENTS CLOSER Oxygen Saturation 98% 05/10/2024 3:53 PM LOAN DOCUMENTS CLOSER Inhaled Oxygen Concentration - - Weight 64 kg (141 lb) 05/10/2024 3:53 PM LOAN DOCUMENTS CLOSER Height 170.2 cm (5' 7 ) 05/10/2024 3:53 PM LOAN DOCUMENTS CLOSER Body Mass Index 22.08 05/10/2024 3:53 PM LOAN DOCUMENTS CLOSER Plan of Treatment Health Maintenance Due Date Last Done Comments Cervical Cancer Screening 1987 Depression Screening 1987 Hepatitis C Screening 1987 Varicella Vaccines (1 of 2 - 13+ 2-dose series) 2000 Regular Well Visit/Exam 18-64 2005 Covid-19 Vaccine ( season) 2024 04/30/2023, 06/05/2022, 05/12/2021, Additional history exists DTaP/Tdap/Td Vaccine (2 - Td or Tdap) 06/05/2024 06/05/2014 Influenza Vaccine (Season Ended) 2025 04/30/2023, 05/08/2022, 05/12/2021, Additional history exists Hepatitis B Screening Completed 11/10/1997 , 06/08/1997, 05/04/1997 HPV Vaccines Aged Out No longer eligi ble based on patient's age to complete this topic Pneumococcal vaccine <65 Aged Out No longer eligible based on patient's age to complete this topic Insurance [facility] Care Teams Mix House Operator Relationship Specialty Start Date End Date Unknown, Notinfile PCP - General 09/10/23
--- OUTSIDE RECORDS SUMMARY | 2024-10-01 08:09 | XMS_ITS | Referral Summary ---
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 Gender Identity Not on file Sexual Orientation Not on file Last Filed Vital Signs Vital Sign Reading Time Taken Comments Blood Pressure 132/90 05/10/2024 4:04 PM BROACH SETTER Pulse 94 05/10/2024 3:53 PM BROACH SETTER Temperature 36.9 C (98.5 F) 05/10/2024 3:53 PM BROACH SETTER Respiratory Rate 20 05/10/2024 3:53 PM BROACH SETTER Oxygen Saturation 98% 05/10/2024 3:53 PM BROACH SETTER Inhaled Oxygen Concentration - - Weight 64 kg (141 lb) 05/10/2024 3:53 PM BROACH SETTER Height 170.2 cm (5' 7 ) 05/10/2024 3:53 PM BROACH SETTER Body Mass Index 22.08 05/10/2024 3:53 PM BROACH SETTER Plan of Treatment Not on file Insurance [facility] Care Teams Natural Resources Specialist Relationship Specialty Start Date End Date Unknown, Notinfile PCP - General 09/10/23
[2024-10-21 16:44] VITALS: BMI 23.5
--- NOTE | 2024-10-21 16:44 | WPDSLEEPSTUD ---
Sleep Study Date of Study: 10/01/24 Ordering Provider: Nadege Mack NP Interpreting Physician: Kianna Dia DO Sleep Study Type: Polysomnogram Height: 1.7 m Weight: 68.039 kg Body Mass Index: 23.5 Neck Circumference (inches): 14 [place]: 12 Reason for Sleep Study Daytime hypersomnia Sleep History The patient is a 39-year-old female who had a sleep study ordered by her primary care for evaluation of daytime hypersomnia. The patient denies awakening from sleep short of breath. She rarely awakens at night with heartburn, belching, or cough. She rarely snores, and it is never loud enough that others complain. She rarely has trouble sleeping when she has a cold. She denies waking up gasping for air throughout the night. She denies having breathing problems at night observed by herself or others. She frequently sweats excessively at night. She denies having heart palpitations or irregular heartbeats during the night. She frequently falls asleep during the day and occasionally while driving. She frequently experiences loss of muscle tone when extremely emotional. She frequently has trouble at school or work due to sleepiness. She occasionally feels unable to move when waking up or falling asleep. She rarely experiences vivid dreamlike scenes upon awakening or falling asleep. She denies feeling afraid of going to sleep. She rarely has nightmares. She occasionally remembers her dreams. She denies having thoughts racing through her mind. She frequently feels sad or depressed. She occasionally has anxiety. She rarely has muscular tension. She denies noticing parts of her body jerk. She denies kicking during the night. She denies having crawling and aching feelings in her legs and denies having leg pain during the night. She denies grinding her teeth during sleep and denies awakening with morning jaw pain. She denies being bothered by pain during the day and denies being awakened by pain during the night. She occasionally wakes up feeling stiff in the morning. She rarely wakes up with sore or achy muscles. She occasionally wakes up with pain in the neck, spine, and other joints. She goes to bed at midnight on weekdays and at 2 a.m. on the weekends. It takes her less than 5 minutes to fall asleep. She wakes up several times throughout the night, mostly due to her children. She is able to fall back asleep relatively quickly. She wakes up at 8 a.m. on weekdays and between 11 a.m. to 3 p.m. on the weekends. She typically gets 7 to 8 hours of sleep per night. She will snooze her alarm several times in the morning. She currently lives with her two children 50% of the time. She denies consuming any caffeinated beverages within 2 hours of bedtime. She denies engaging in physical exercise before bedtime. She will watch television before falling asleep. She will occasionally take a nap in the afternoon or the evening, but it is not refreshing. She consumes 1 to 2 caffeinated beverages per day. She consumes 3 alcoholic beverages per day. She smokes half a pack of cigarettes per day. She denies recreational drugs. [facility] Past Medical History Medical History Encounter for surveillance of other contraceptives Eczema History of COVID-19 11/2020 Vitamin D deficiency Essential (primary) hypertension Dyslipidemia Attention deficit disorder Depression with anxiety Surgical History Surgical History H/O gynecological procedure Nexplanon insertion 06/04/23 Family History Family History Father Family history of gastrointestinal disorder Mother Hypertension Other Asthma Social History Social History Smoking packs per day: 0.5 Smoking cigarettes per day: 10.0 Smoking status: Current every day smoker Tobacco type: cigarettes Alcohol intake: current Drinks per week: 8 Substance use: never Substance use type: does not use Do You Feel Safe in your Home?: Yes Lack of Transportation: No Lack of Food: Never True Current Housing: I Have Housing Concerned About Future Housing: No Difficulty Paying Gas/Electric Bills: YES Difficulty Paying for Meds: No Currently Unemployed: No Education: Bachelor's Degree Difficulty w/ Childcare or Family Care: No Living arrangements: other Additional living arrangements comments: single Occupation/Education: occupation Additional occupation/education comments: [employer] [facility] [employer] Gender identity (if verbalized by the patient): Female Sexual Orientation (if Verbalized by the Patient): Bisexual Medications Home Medications ?Medication ?Instructions ?Recorded ?Confirmed ?Type desoximetasone 0.25 % topical cream 0.25 g topical DAILY 08/08/19 03/11/24 History dextroamphetamine-amphetamine 5 mg 5 mg PO DAILY 01/26/21 03/11/24 History tablet (Adderall) dextroamphetamine-amphetamine ER 15 mg PO QAM 01/26/21 03/11/24 History 15 mg 24hr capsule,extend release (Adderall XR) lamotrigine 100 mg tablet 100 mg PO DAILY 12/16/21 03/11/24 History (Lamictal) hydrocortisone 2.5 % topical cream 1 applic topical BID PRN itching 06/23/22 03/11/24 Rx #20 grams fluoxetine 40 mg capsule 40 mg PO DAILY 11/29/22 03/11/24 History ruxolitinib 1.5 % topical cream applic topical BID 11/29/22 03/11/24 History (Opzelura) dupilumab 200 mg/1.14 mL 200 mg subcut ONCE 03/10/24 03/11/24 History subcutaneous pen injector (Dupixent) metoprolol succinate 25 mg 25 mg PO DAILY #90 tabs 03/25/24 Rx tablet,extended release 24 hr Sleep Procedure A full night polysomnogram using the [employer] multi-channel system recorded the standard physiologic parameters including EEG, EOG, submentalis EMG, anterior tibialis EMG, EKG, body position, nasal and oral airflow using nasal pressure sensor and thermistor.? Respiratory parameters of chest and abdominal movements were recorded with Respiratory Inductance Plethysmography belts. Oxygen saturation was recorded by pulse oximetry. Video monitoring was also performed. Sleep stages, periodic limb movements, and EEG arousals were scored in 30 second epochs according to the criteria of the AASM Scoring Manual. The Apnea-Hypopnea Index was calculated using CMS guidelines for definition of hypopnea with 4% O2 desaturations while scoring respiratory events. Sleep Architecture The total recording time was 485.1 minutes.? The total sleep time was 405.5 minutes. Sleep latency was 21.4 minutes. REM latency was 230.0 minutes. Sleep efficiency was 83.6%. The patient had 40 awakenings for an awakening index of 5.9. Wake after sleep onset time was 58.5 minutes. The patient spent 69.5 minutes, 17.1% of total sleep time in Stage N1. The patient spent 262.5 minutes, 64.7% in Stage N2. The patient spent 8.0 minutes, 2.0% in Stage N3. The patient spent 65.5 minutes, 16.2% in Stage REM sleep. Respiratory Analysis The patient had 6 hypopneas and 1 central apnea for an overall Apnea Hypopnea Index of 1.0. The REM Apnea Hypopnea Index was 6.4. The NREM Apnea Hypopnea Index was 0.2. The patient had a Central Apnea Hypopnea Index of 0.1. There was no evidence of Justin-Marcial Respirations. Arousals There were 214 total arousals for an arousal index of 31.7. There were 163 spontaneous arousals for an index of 24.1. There were 31 arousals due to respiratory events for an index of 4.6. There were 4 arousals due to periodic limb movements for an index of 0.6.? There were 16 arousals due to isolated limb movements for an index of 2.4. Periodic Limb Movements The patient had 45 isolated limb movements with an index of 6.7. The patient had 22 periodic limb movements with an index of 3.3. Patient had a total of 67 limb movements with a total limb movement index of 9.9. Oximetry Data The patient had an average oxygen saturation of 94.9% in sleep with a minimum oxygen saturation of 91.0% and a maximum oxygen saturation of 98.0%. The patient had 7 oxygen desaturations that were 4% or greater resulting in an Oxygen Desaturation Index of 1.0.? The patient spent 0.2 minutes of total sleep time with an oxygen saturation below 88%. Snoring Profile Moderate snoring was present throughout the study. Cardiac Profile The EKG showed normal sinus rhythm. No arrhythmias or premature beats were seen. The patient had an average pulse rate of 72.8 bpm with a minimum pulse of rate of 62.0 bpm and a maximum pulse rate of 103.0 bpm.? EEG Profile No signs of seizure activity seen. Alpha intrusion was present throughout the study. Assessment and Plan Assessment and Plan (1) Excessive daytime sleepiness: Code(s): G47.19 - Other hypersomnia Status: Acute Assessment and Plan: The patient had an overall AHI of 1.0 with desaturation down to 91%. This is not consistent with sleep-disordered breathing. If there is concern for narcolepsy, I recommend that the patient have a polysomnogram followed by [facility]. Alpha intrusion was present throughout the study. Alpha intrusion, also known as alpha-delta sleep, is an EEG finding where alpha waves are present during NREM sleep. Alpha waves are typically present in wake. While alpha intrusion can be seen in a small subset of healthy individuals, it is often found in patients with depression, fibromyalgia, chronic pain and other sleep disorders. Clinically, alpha intrusion presents as non-restorative sleep. Treatment of alpha intrusion is directed towards the underlying cause. Data The data obtained during this sleep study is adequate for interpretation. Certification This sleep study has been reviewed by a board certified sleep medicine physician.
== END 2024-10-02 07:03 | disposition home or self-care (01) ==
LOC: ANHCSM 08:02
PROVIDERS: PCP Nurse Practitioner Family; Visit Provider Nurse Practitioner Family
DX: G47.33 Obstructive sleep apnea (adult) (pediatric) (principal); G47.19 Other hypersomnia; R53.82 Chronic fatigue, unspecified; E55.9 Vitamin D deficiency, unspecified; F41.8 Other specified anxiety disorders; I10 Essential (primary) hypertension; F17.210 Nicotine dependence, cigarettes, uncomplicated
CPT/HCPCS: 95810

== ENCOUNTER 2025-05-19 12:17 | Emergency (ER) | payer OTHER, SELFPAY ==
--- NOTE | 2025-05-19 12:24 | ED.URI ---
HPI - URI/Sore Throat General Chief Complaint: Upper Respiratory Infection Stated Complaint: SORE THROAT Time Seen by Provider: 05/19/25 12:26 Source: patient, RN notes reviewed and old records reviewed Mode of arrival: ambulatory Limitations: no limitations History of Present Illness HPI Narrative: 40-year-old female presents to the [facility] with complaints of congestion and a sore throat for 2 days. Denies fevers. Has taken TheraFlu and Motrin Onset (ago): day(s) (2) Treatments prior to arrival: ibuprofen and cold medicine Related Data Home Medications ?Medication ?Instructions ?Recorded ?Confirmed ?Last Taken ?Type desoximetasone 0.25 % topical cream 0.25 g topical DAILY 08/08/19 05/19/25 Unknown History dupilumab 200 mg/1.14 mL 200 mg subcut ONCE 03/10/24 05/19/25 Unknown History subcutaneous pen injector (Dupixent) etonogestrel 68 mg subdermal 1 implant subdermal ONCE 10/22/24 05/19/25 Unknown History implant (Nexplanon) mupirocin 2 % topical ointment 1 applic topical BID 10/22/24 05/19/25 Unknown History (Centany) ruxolitinib 1.5 % topical cream 1 applic topical BID 10/22/24 05/19/25 Unknown History (Opzelura) Allergies Allergy/AdvReac Type Severity Reaction Status Date / Time bacitracin (From Neosporin Allergy Severe unknown Verified 05/19/25 12:25 ([id number])) neomycin (From Neosporin Allergy Severe unknown Verified 05/19/25 12:25 ([id number])) polymyxin B (From Neosporin Allergy Severe unknown Verified 05/19/25 12:25 ([id number])) azathioprine Allergy Unknown Nausea Verified 05/19/25 12:25 Review of Systems Review of Systems: All systems reviewed & are unremarkable except as noted in HPI and below Constitutional: Constitutional: Reports no additional constitutional complaints ENT: Reports as per HPI, Reports nasal congestion and Reports sore throat Cardiovascular: Cardiovascular: Reports no additional cardiovascular complaints, Denies chest pain and Denies dyspnea Respiratory: Respiratory: Reports no additional respiratory complaints, Denies chest congestion, Denies cough and Denies dyspnea Musculoskeletal: Musculoskeletal: Reports no additional musculoskeletal complaints Integumentary/Breasts: Skin/Breast: Reports system reviewed and no additional complaints, except as docu PMFSH Past Medical History Medical History Sleep disorder alpha intrusion Chronic fatigue Encounter for surveillance of other contraceptives Eczema History of COVID-19 11/2020 Vitamin D deficiency Essential (primary) hypertension Dyslipidemia Attention deficit disorder Depression with anxiety Surgical History Surgical History H/O gynecological procedure Nexplanon insertion 06/04/23 Family History Family History Father Family history of gastrointestinal disorder Mother Hypertension Other Asthma Social History Social History Smoking packs per day: 0.5 Smoking cigarettes per day: 10.0 Smoking status: Current every day smoker Tobacco type: cigarettes Second hand tobacco smoke exposure: Yes Alcohol intake: current Drinks per week: 8 Substance use: never Substance use type: does not use Do You Feel Safe in your Home?: Yes Lack of Transportation: No Lack of Food: Never True Current Housing: I Have Housing Concerned About Future Housing: No Difficulty Paying Gas/Electric Bills: YES Difficulty Paying for Meds: No Currently Unemployed: No Education: Bachelor's Degree Difficulty w/ Childcare or Family Care: No Living arrangements: other Additional living arrangements comments: single Occupation/Education: occupation Additional occupation/education comments: [employer]i in [employer] Gender identity (if verbalized by the patient): Female Sexual Orientation (if Verbalized by the Patient): Bisexual Comments At the time of my signature, I reviewed and agree with the nursing past medical, surgical, social, and family history. There is no relevant family history pertinent to the patient complaint. Exam Const: General: cooperative, healthy appearing, comfortable, no acute distress, well developed, alert and well nourished Nutritional Appearance: well nourished Orientation/consciousness: patient oriented x3 Limitations: no limitations HENMT: Head: normal to inspection Ears: hearing grossly normal bilaterally, external ears normal, EAC's normal, mastoids normal and no periauricular adenopathy Face/Nose/Sinus: Normal external nose present Face and sinus: normal facial exam, sinuses nontender and face symmetric Mouth: Yes Normal oral and palatal mucosa present, Yes lip normal, Yes tongue normal and Yes moist mucous membranes Throat: posterior oropharynx normal, uvula midline, abnormal tonsil bilateral erythema, exudates and hypertrophy and no uvular edema Eyes: General: appearance normal, both eyes and all related structures Alignment and Position: alignment normal Neck: Neck: normal visual inspection, full ROM, no lymphadenopathy and no meningeal signs Chest: Chest palpation & inspection: normal inspection of the chest Resp: Effort & Inspection: normal respiratory effort and able to speak in complete sentences Auscultation: clear to auscultation bilaterally, no crackles, no rales, no rhonchi and no wheezes Cardio: Rate: regular rate Skin: General skin exam: normal color and no rashes or lesions noted Neuro: General: patient oriented x3, gait normal, moves all extremities and no meningeal signs Cognition (Neuro): normal cognition Speech: normal speech Gait exam (Neuro): Normal gait present Extrem: General: normal to inspection, full ROM, capillary refill normal and normal gait Psych: Appearance: grossly normal and well kempt Mental Status: mental status grossly normal Speech and movement: Normal speech and movement present and Clear speech present Affect: normal affect Attitude: cooperative Course Course Level of Care: Express Care Visit Vital Signs Vital signs: Vital Signs Temperature 97.3 F L 05/19/25 12:28 Pulse Rate 98 05/19/25 12:28 Respiratory Rate 16 05/19/25 12:28 Blood Pressure 123/80 05/19/25 12:28 Pulse Oximetry 98 05/19/25 12:28 Temperature 97.3 F L 05/19/25 12:28 Pulse Rate 98 05/19/25 12:28 Respiratory Rate 16 05/19/25 12:28 Blood Pressure 123/80 05/19/25 12:28 Pulse Oximetry 98 05/19/25 12:28 Reviewed MDM - URI/Sore Throat MDM Narrative Medical decision making narrative: patient sitting comfortably in exam room patient is nontoxic, vitals stable patient presents for sore throat, patient is positive strep. Patient is appropriate for outpatient treatment with close follow-up Discharge instructions reviewed with patient, as well as provided in writing per nursing staff. The instructions also include specific and strict return/GO TO THE ER as well as f/u information. All questions have been answered, and the patient deny any further questions with discharge and discharge plan. Some parts of this dictation were generated by voice recognition software and may contain typographical and/or grammatical inaccuracies. Differential Diagnosis Differential diagnosis: Likely upper respiratory infection, otitis media, sinusitis, viral infection, bronchitis, influenza and pharyngitis Lab Data Labs: Lab Results 05/19/25 Range/Units 12:39 POC Grp A Strep Screen Positive (Negative) reviewed Critical Care Time Critical Care Time Critical Care Time: No Discharge Plan Discharge Clinical Impression: Strep pharyngitis Patient Disposition: Home Condition: Stable Instructions: Antibiotic Form, Strep Throat (DC) Additional Instructions: After 24-48 hours on antibiotics, Throw the toothbrush away, start using a new one. Please be sure to wash bed linens especially pillow cases. Repeat once you finish the antibiotics. Do not share drinks. Take Motrin alternating with Tylenol for pain and fever alternating every 4 hours. Increase fluids, avoid caffeine. Give plenty of water, juice, Gatorade, Pedialyte, ice pops in Jell-O Follow up with Primary provider if not getting better this week For new or worsening symptoms go directly to the emergency room Patient Language: Turkmen Prescriptions: New amoxicillin 500 mg tablet 500 mg PO Q12H Qty: 20 0RF No Action hydrocortisone 2.5 % cream 1 applic topical BID PRN (Reason: itching) Qty: 20 1RF mupirocin [Centany] 2 % ointment 1 applic topical BID Nexplanon 68 mg implant 1 implant subdermal ONCE Rx Instructions: as a single dose Opzelura 1.5 % cream 1 applic topical BID desoximetasone 0.25 % cream 0.25 g TOPICAL DAILY Dupixent Pen 200 mg/1.14 mL pen injector 200 mg subcut ONCE dexmethylphenidate [Focalin XR] 20 mg capsule,ER biphasic 50-50 20 mg PO DAILY Qty: 30 0RF metoprolol tartrate 75 mg tablet 75 mg PO Q12H Qty: 180 1RF vilazodone 20 mg tablet 20 mg PO DAILY Qty: 30 1RF Rx Instructions: must administer with a meal/food lamotrigine [Lamictal] 100 mg tablet 100 mg PO DAILY Qty: 30 1RF Follow-up/Referrals: Denmon,Nadege A., CENTRAL OFFICE MAINTAINER [Primary Care Provider, Family Practice] - 1 Week Stand Alone Forms: Work/School Release IP Time of Disposition: 12:36
[2025-05-19 12:28] VITALS: BP 123/80; PULSE 98; RESP 16; TEMP 36.3; O2SAT 98
[2025-05-19 12:40] LABS: EDSTREPNEGPOS1 Positive (Negative)
== END 2025-05-19 12:40 | disposition home or self-care (01) ==
PROVIDERS: Emergency Provider Nurse Practitioner; PCP Nurse Practitioner Family
DX: J02.0 Streptococcal pharyngitis (principal); I10 Essential (primary) hypertension; E78.5 Hyperlipidemia, unspecified; F17.210 Nicotine dependence, cigarettes, uncomplicated; F41.8 Other specified anxiety disorders; F98.8 Other specified behavioral and emotional disorders with onset usually occurring in childhood and adolescence
CPT/HCPCS: 87880; 99213; G0463